=== PATIENT | male | born 1970 | race American Indian/Alaskan Native ===

== ENCOUNTER 2017-01-17 14:22 | Emergency (ER) | payer BC ==
[2017-01-17 14:36] VITALS: BP 129/93
[2017-01-17] MEDS ORDERED: MOTRIN PO ONE (16:53)
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
== END 2017-01-17 18:54 | disposition home or self-care (01) ==
LOC: ED 14:22
DX: S13.4XXA Sprain of ligaments of cervical spine, initial encounter (principal); S39.012A Strain of muscle, fascia and tendon of lower back, initial encounter; F17.200 Nicotine dependence, unspecified, uncomplicated; V43.52XA Car driver injured in collision with other type car in traffic accident, initial encounter; Y93.89 Activity, other specified; Y99.8 Other external cause status; Y92.488 Other paved roadways as the place of occurrence of the external cause
CPT/HCPCS: 72040; 72100